=== PATIENT | female | born 1995 | race Two or more races ===

== ENCOUNTER 2016-12-10 18:02 | Inpatient (IN) | payer OTHER, BC ==
[~2016-12-10] VITALS: Ht 154.9 cm; Wt 68.0 kg
[~2016-12-10 18:02] MED LIST: IBUP-1222 PO; OXYC-302 PO
[2016-12-10 18:18] VITALS: BP 127/89
[2016-12-11] MEDS ORDERED: OXYTOCIN 30U/ 0.9% NaCL 500ML 500 ML IV ONE (00:44)
[2016-12-11] MEDS ORDERED: TERBUTALINE 1 MG/ML, 1ML IVPush PRN (01:00)
[2016-12-11] MEDS ORDERED: SODIUM CITRATE/CITRIC ACID 30 ML UDC PO PRN (01:00)
[2016-12-11] MEDS ORDERED: METOCLOPRAMIDE 5 MG/ML, 2ML IVPush PRN (01:00)
[2016-12-11] MEDS: LACTATED RINGERS 1,000 ML IV SCH ×5 (01:00→17:57)
[2016-12-11] MEDS ORDERED: FENTANYL PF 100 MCG/2ML IVPush PRN (01:00)
[2016-12-11] MEDS ORDERED: FENTANYL PF 100 MCG/2ML IV PRN (01:00)
[2016-12-11] MEDS ORDERED: NEWBORN KIT ONE (01:24)
[2016-12-11] MEDS ORDERED: OXYTOCIN 30U/ 0.9% NaCL 500ML 500 ML ONE ×2 (01:24→14:51)
[2016-12-11 07:59] VITALS: BP 123/73
[2016-12-11] MEDS: D5%-LACTATED RINGERS 1,000 ML IV SCH ×3 (08:44→16:44)
[2016-12-11] MEDS ORDERED: FENTANYL/BUPIV./NS/PF 250 ML EPIDCONT ONE (09:54)
[2016-12-11] MEDS ORDERED: BUPIVACAINE/PF 0.25% ONE (09:55)
[2016-12-11] MEDS ORDERED: FENTANYL/BUPIV./NS/PF 250 ML EPIDCONT SCH (09:57)
[2016-12-11] MEDS ORDERED: EPHEDRINE 50 MG/ML, 1ML IVPush PRN (10:00)
[2016-12-11] MEDS ORDERED: NALOXONE 0.4 MG/ML, 1ML IVPush PRN (10:00)
[2016-12-11] MEDS ORDERED: LACTATED RINGERS 1,000 ML IVBOLUS PRN (10:00)
[2016-12-11] MEDS ORDERED: MISOPROSTOL 200 MCG TABLET PO PRN (14:30)
[2016-12-11] MEDS ORDERED: ACETAMINOPHEN 325 MG TABLET PO PRN (14:30)
[2016-12-11] MEDS ORDERED: METOCLOPRAMIDE 5 MG/ML, 2ML IV PRN (14:30)
[2016-12-11] MEDS ORDERED: MISOPROSTOL 200 MCG TABLET PR PRN (14:30)
[2016-12-11] MEDS: OXYTOCIN 30U/ 0.9% NaCL 500ML 500 ML IV SCH (14:54)
[2016-12-11] MEDS ORDERED: IBUPROFEN 600 MG TABLET ONE (15:55)
[2016-12-11] MEDS: IBUPROFEN 600 MG TABLET PO PRN ×2 (15:56→22:14)
[2016-12-11 18:35] VITALS: BP 109/68
[2016-12-11 19:30] VITALS: BP 110/66
[2016-12-11] MEDS: DOCUSATE 100 MG CAPSULE PO PRN (22:13)
[2016-12-12 00:25] VITALS: BP 117/74
[2016-12-12] MEDS: OXYTOCIN 30U/ 0.9% NaCL 500ML 500 ML IV SCH ×3 (00:27→20:27)
[2016-12-12] MEDS: LACTATED RINGERS 1,000 ML IV SCH ×6 (00:44→17:57)
[2016-12-12] MEDS: D5%-LACTATED RINGERS 1,000 ML IV SCH ×3 (00:44→16:44)
[2016-12-12 05:20] VITALS: BP 125/78
[2016-12-12] MEDS: IBUPROFEN 600 MG TABLET PO PRN ×3 (05:31→20:37)
[2016-12-12 07:55] VITALS: BP 115/69
[2016-12-12] MEDS ORDERED: PRENATAL VIT/IRON/FA 1 EACH TABLET PO SCH (09:00)
[2016-12-12] MEDS: DOCUSATE 100 MG CAPSULE PO PRN ×2 (09:12→20:37)
[2016-12-12 19:46] VITALS: BP 120/79
[2016-12-12] MEDS ORDERED: MISOPROSTOL 200 MCG TABLET PO PRN (20:30)
[2016-12-12] MEDS ORDERED: MISOPROSTOL 200 MCG TABLET PR PRN (20:30)
[2016-12-12] MEDS ORDERED: METOCLOPRAMIDE 5 MG/ML, 2ML IV PRN (20:30)
[2016-12-12] MEDS ORDERED: ACETAMINOPHEN 325 MG TABLET PO PRN (21:00)
[2016-12-13] MEDS ORDERED: DOCU-30 PO (00:56)
[2016-12-13] MEDS: IBUPROFEN 600 MG TABLET PO PRN ×2 (03:28→11:13)
[2016-12-13] MEDS: OXYTOCIN 30U/ 0.9% NaCL 500ML 500 ML IV SCH (06:27)
[2016-12-13 07:34] VITALS: BP 126/84
[2016-12-13] MEDS ORDERED: PRENATAL VIT/IRON/FA 1 EACH TABLET PO SCH (09:00)
[2016-12-13] MEDS: DOCUSATE 100 MG CAPSULE PO PRN (11:13)
== END 2016-12-13 16:35 | disposition home or self-care (01) | DRG 775 ==
LOC: LDOP 18:02 → LDIP 21:16 → OBSVTOIN 12-11 00:08 → 2NW 12-11 17:09 → UNDODISIN 12-12 16:13
PROVIDERS: ADMIT Obstetrics & Gynecology; ATTEND Obstetrics & Gynecology
PROC: 10E0XZZ Delivery of Products of Conception, External Approach (ICD-10-PCS; principal; 2016-12-11)
PROC: 10907ZC Drainage of Amniotic Fluid, Therapeutic from Products of Conception, Via Natural or Artificial Opening (ICD-10-PCS; 2016-12-11)
PROC: 00HU33Z Insertion of Infusion Device into Spinal Canal, Percutaneous Approach (ICD-10-PCS; 2016-12-11)
PROC: 3E0R3CZ (ICD-10-PCS; 2016-12-11)
DX: O63.0 Prolonged first stage (of labor) (principal); Z37.0 Single live birth; Z3A.39 39 weeks gestation of pregnancy
CPT/HCPCS: 36415; 85025; 86850; 86900; J3490; J2590; J3010; J7120; J7121

== ENCOUNTER 2017-10-19 11:58 | Inpatient (IN) | payer BC ==
[~2017-10-19] VITALS: Ht 154.9 cm; Wt 68.2 kg
[~2017-10-19 11:58] MED LIST changes: +DOCU-131 PO
[2017-10-20] MEDS: D5%-LACTATED RINGERS 1,000 ML IV SCH ×3 (05:05→21:05)
[2017-10-20] MEDS ORDERED: OXYTOCIN 30U/ 0.9% NaCL 500ML 500 ML IV ONE (05:05)
[2017-10-20] MEDS ORDERED: OXYTOCIN 30U/ 0.9% NaCL 500ML 500 ML IV PRN (05:05)
[2017-10-20] MEDS ORDERED: NEWBORN KIT ONE (05:10)
[2017-10-20] MEDS ORDERED: OXYTOCIN 30U/ 0.9% NaCL 500ML 500 ML ONE ×2 (05:10→16:05)
[2017-10-20] MEDS ORDERED: METOCLOPRAMIDE 5 MG/ML, 2ML IVPush PRN (05:30)
[2017-10-20] MEDS ORDERED: SODIUM CITRATE/CITRIC ACID 30 ML UDC PO PRN (05:30)
[2017-10-20] MEDS ORDERED: CALCIUM CARBONATE 500 MG TAB.CHEW PO PRN (05:30)
[2017-10-20] MEDS ORDERED: FENTANYL PF 100 MCG/2ML IV PRN (05:30)
[2017-10-20] MEDS ORDERED: TERBUTALINE 1 MG/ML, 1ML IVPush PRN (05:30)
[2017-10-20] MEDS ORDERED: ONDANSETRON 2MG/ML, 2ML IVPush PRN (05:30)
[2017-10-20] MEDS ORDERED: FENTANYL PF 100 MCG/2ML IVPush PRN (05:30)
[2017-10-20 05:35] VITALS: BP 120/76
[2017-10-20 05:35] LABS: BASOPHILS # (AUTO) 0.08 x10^3/uL (0-0.1); BASOPHILS % (AUTO) 1 % (0-1); EOSINOPHILS # (AUTO) 0.03 x10^3/uL (0-0.4); EOSINOPHILS % (AUTO) 0 % (1-7); LYMPHOCYTES # (AUTO) 1.92 x10^3/uL (1-3.4); LYMPHOCYTES % (AUTO) 27 % (22-44); MD NO; MEAN CORPUSCULAR HGB CONC 34.1 g/dL (32.4-35.8); MEAN CORPUSCULAR VOLUME 85.1 fL (80-100); MEAN PLATELET VOLUME 9.9 fL (7.4-10.4); MONOCYTES # (AUTO) 0.48 x10^3/uL (0.2-0.8); MONOCYTES % (AUTO) 7 % (2-9); NEUTROPHILS # (AUTO) 4.49 x10^3/uL (1.8-6.8); NEUTROPHILS % (AUTO) 64 % (42-75); PLATELET COUNT 261 x10^3/uL (130-400); RED BLOOD COUNT 4.17 x10^6/uL (3.82-5.3); RED CELL DISTRIBUTION WIDTH 13.4 % (9.6-15.2)
[2017-10-20] MEDS: LACTATED RINGERS 1,000 ML IV SCH ×5 (05:45→21:05)
[2017-10-20] MEDS ORDERED: FENTANYL/BUPIV./NS/PF 250 ML EPIDCONT SCH (11:20)
[2017-10-20] MEDS ORDERED: FENTANYL/BUPIV./NS/PF 250 ML EPIDCONT ONE (11:25)
[2017-10-20] MEDS ORDERED: BUPIVACAINE/PF 0.25% ONE (11:25)
[2017-10-20] MEDS ORDERED: EPHEDRINE 50 MG/ML, 1ML IVPush PRN (11:30)
[2017-10-20] MEDS ORDERED: NALOXONE 0.4 MG/ML, 1ML IVPush PRN (11:30)
[2017-10-20] MEDS ORDERED: LACTATED RINGERS 1,000 ML IVBOLUS PRN (11:30)
[2017-10-20] MEDS ORDERED: MISOPROSTOL 200 MCG TABLET ONE (14:52)
[2017-10-20] MEDS ORDERED: MISOPROSTOL 200 MCG TABLET PR PRN ×2 (15:00→15:30)
[2017-10-20] MEDS ORDERED: DOCUSATE 100 MG CAPSULE PO PRN (15:30)
[2017-10-20] MEDS ORDERED: OXYcodone/APAP 5/325MG TABLET PO PRN (15:30)
[2017-10-20] MEDS ORDERED: ONDANSETRON 2MG/ML, 2ML IV PRN (15:30)
[2017-10-20] MEDS ORDERED: METHYLERGONOVINE 0.2 MG/ML IM PRN (15:30)
[2017-10-20] MEDS ORDERED: IBUPROFEN 600 MG TABLET PO PRN (15:30)
[2017-10-20] MEDS: OXYTOCIN 30U/ 0.9% NaCL 500ML 500 ML IV SCH (16:08)
[2017-10-20] MEDS ORDERED: IBUPROFEN 600 MG TABLET ONE (17:24)
[2017-10-20 17:45] VITALS: BP 110/67
[2017-10-20 19:30] VITALS: BP 97/58
[2017-10-20 23:26] LABS: BASOPHILS # (AUTO) 0.03 x10^3/uL (0-0.1); BASOPHILS % (AUTO) 0 % (0-1); EOSINOPHILS # (AUTO) 0.01 x10^3/uL (0-0.4); EOSINOPHILS % (AUTO) 0 % (1-7); LYMPHOCYTES # (AUTO) 1.88 x10^3/uL (1-3.4); LYMPHOCYTES % (AUTO) 22 % (22-44); MD NO; MEAN CORPUSCULAR HEMOGLOBIN 28.6 pg (27.0-34.8); MEAN CORPUSCULAR HGB CONC 33.7 g/dL (32.4-35.8); MEAN PLATELET VOLUME 9.5 fL (7.4-10.4); MONOCYTES # (AUTO) 0.61 x10^3/uL (0.2-0.8); MONOCYTES % (AUTO) 7 % (2-9); NEUTROPHILS # (AUTO) 6.13 x10^3/uL (1.8-6.8); NEUTROPHILS % (AUTO) 71 % (42-75); PLATELET COUNT 199 x10^3/uL (130-400); RED BLOOD COUNT 3.43 x10^6/uL (3.82-5.3); RED CELL DISTRIBUTION WIDTH 13.3 % (9.6-15.2)
[2017-10-20 23:45] VITALS: BP 110/68
[2017-10-21] MEDS: OXYTOCIN 30U/ 0.9% NaCL 500ML 500 ML IV SCH ×2 (01:02→11:02)
[2017-10-21 04:25] VITALS: BP 106/66
[2017-10-21 08:50] VITALS: BP 113/69
[2017-10-21] MEDS ORDERED: PRENATAL VIT/IRON/FA 1 EACH TABLET PO SCH (09:00)
[2017-10-21] MEDS ORDERED: MEASLES,MUMPS&RUBELLA VACC/PF 0.5 ML SQ-VACC ONE ×2 (11:43→12:30)
[2017-10-21 12:08] VITALS: BP 112/71
[2017-10-21] MEDS ORDERED: MULT-257 PO (13:37)
== END 2017-10-21 16:05 | disposition home or self-care (01) | DRG 775 ==
LOC: LDIP 10-20 05:04 → 2NW 10-20 17:30
PROVIDERS: ADMIT Obstetrics & Gynecology; ATTEND Obstetrics & Gynecology
PROC: 10E0XZZ Delivery of Products of Conception, External Approach (ICD-10-PCS; principal; 2017-10-20)
PROC: 3E033VJ Introduction of Other Hormone into Peripheral Vein, Percutaneous Approach (ICD-10-PCS; 2017-10-20)
PROC: 3E0R3BZ Introduction of Anesthetic Agent into Spinal Canal, Percutaneous Approach (ICD-10-PCS; 2017-10-20)
PROC: 00HU33Z Insertion of Infusion Device into Spinal Canal, Percutaneous Approach (ICD-10-PCS; 2017-10-20)
DX: O43.123 Velamentous insertion of umbilical cord, third trimester (principal); O43.193 Other malformation of placenta, third trimester; Z37.0 Single live birth; Z3A.39 39 weeks gestation of pregnancy
CPT/HCPCS: 36415; 85025; 86850; 86900; J2590; J3010; J7120

== ENCOUNTER 2020-11-30 06:46 | Inpatient (IN) | payer OTHER, BC ==
[~2020-11-30] VITALS: Ht 157.5 cm; Wt 65.4 kg
[~2020-11-30 06:46] MED LIST changes: +MULT-257 PO; -OXYC-302 PO; +OXYC1TAB14 PO
[2020-11-30] MEDS ORDERED: SODIUM CITRATE/CITRIC ACID 30 ML UDC PO PRN (07:00)
[2020-11-30] MEDS ORDERED: METOCLOPRAMIDE 5 MG/ML, 2ML IVPush PRN (07:00)
[2020-11-30] MEDS ORDERED: LACTATED RINGERS 1,000 ML IV SCH (07:00)
[2020-11-30] MEDS ORDERED: CALCIUM CARBONATE 500 MG TAB.CHEW PO PRN (07:00)
[2020-11-30] MEDS ORDERED: TERBUTALINE 1 MG/ML, 1ML SQ PRN (07:00)
[2020-11-30] MEDS ORDERED: OXYTOCIN 30U/ 0.9% NaCL 500ML 500 ML IV PRN (07:00)
[2020-11-30] MEDS ORDERED: FENTANYL PF 100 MCG/2ML IVPush PRN (07:00)
[2020-11-30] MEDS ORDERED: FENTANYL PF 100 MCG/2ML IV PRN (07:00)
[2020-11-30] MEDS ORDERED: ONDANSETRON 2MG/ML, 2ML IVPush PRN (07:00)
[2020-11-30] MEDS ORDERED: D5%-LACTATED RINGERS 1,000 ML IV SCH (07:00)
[2020-11-30] MEDS ORDERED: TERBUTALINE 1 MG/ML, 1ML IVPush PRN (07:00)
[2020-11-30 07:31] LABS: BASOPHILS % (AUTO) 0 % (0-1); EOSINOPHILS % (AUTO) 1 % (1-7); LYMPHOCYTES % (AUTO) 29 % (22-44); MEAN CORPUSCULAR HEMOGLOBIN 28.1 pg (27.0-34.8); MEAN CORPUSCULAR HGB CONC 33.7 g/dL (32.4-35.8); MEAN PLATELET VOLUME 9.7 fL (7.4-10.4); MONOCYTES % (AUTO) 6 % (2-9); NEUTROPHILS % (AUTO) 64 % (42-75); PLATELET COUNT 217 x10^3/uL (130-400); RED BLOOD COUNT 4.17 x10^6/uL (3.82-5.3); RED CELL DISTRIBUTION WIDTH 14.7 % (9.6-15.2)
[2020-11-30 07:33] LABS: MD NO
[2020-11-30] MEDS ORDERED: NEWBORN KIT ONE (07:35)
[2020-11-30 07:43] VITALS: BP 128/79
[2020-11-30] MEDS ORDERED: IBUPROFEN 600 MG TABLET PO PRN (11:00)
[2020-11-30] MEDS ORDERED: OXYcodone/APAP 5/325MG TABLET PO PRN (11:00)
[2020-11-30] MEDS: PRENATAL VIT/IRON/FA 1 EACH TABLET PO SCH (11:00)
[2020-11-30] MEDS ORDERED: SIMETHICONE 80 MG CHEW TAB PO PRN (11:00)
[2020-11-30] MEDS ORDERED: ONDANSETRON 2MG/ML, 2ML IV PRN (11:00)
[2020-11-30] MEDS ORDERED: MISOPROSTOL 200 MCG TABLET PR PRN (11:00)
[2020-11-30] MEDS ORDERED: ACETAMINOPHEN 325 MG TABLET PO PRN (11:00)
[2020-11-30] MEDS: OXYTOCIN 30U/ 0.9% NaCL 500ML 500 ML IV SCH ×2 (11:47→21:00)
[2020-11-30 12:45] VITALS: BP 113/71
[2020-11-30 16:56] VITALS: BP 130/84
[2020-11-30 18:28] LABS: BASOPHILS % (AUTO) 1 % (0-1); EOSINOPHILS % (AUTO) 0 % (1-7); LYMPHOCYTES % (AUTO) 24 % (22-44); MEAN CORPUSCULAR HEMOGLOBIN 28.4 pg (27.0-34.8); MEAN PLATELET VOLUME 9.6 fL (7.4-10.4); MONOCYTES % (AUTO) 7 % (2-9); NEUTROPHILS % (AUTO) 69 % (42-75); PLATELET COUNT 200 x10^3/uL (130-400); RED BLOOD COUNT 3.94 x10^6/uL (3.82-5.3); RED CELL DISTRIBUTION WIDTH 14.4 % (9.6-15.2)
[2020-11-30 18:32] LABS: MD NO
[2020-11-30 19:30] VITALS: BP 122/79
[2020-12-01 00:10] VITALS: BP 117/71
[2020-12-01 03:30] VITALS: BP 113/72
[2020-12-01 07:20] VITALS: BP 116/72
[2020-12-01] MEDS: DOCUSATE 100 MG CAPSULE PO PRN (09:56)
[2020-12-01] MEDS: PRENATAL VIT/IRON/FA 1 EACH TABLET PO SCH (09:56)
[2020-12-01 13:15] VITALS: BP 126/78
[2020-12-01 19:15] VITALS: BP 122/79
[2020-12-02 07:20] VITALS: BP 117/76
[2020-12-02] MEDS: DOCUSATE 100 MG CAPSULE PO PRN (09:26)
[2020-12-02] MEDS: PRENATAL VIT/IRON/FA 1 EACH TABLET PO SCH (09:26)
== END 2020-12-02 11:30 | disposition home or self-care (01) | DRG 807 ==
LOC: LDIP 06:46 → 2NW 12:30
PROVIDERS: ADMIT Obstetrics & Gynecology; ATTEND Obstetrics & Gynecology
PROC: 10E0XZZ Delivery of Products of Conception, External Approach (ICD-10-PCS; principal; 2020-12-01)
PROC: 3E033VJ Introduction of Other Hormone into Peripheral Vein, Percutaneous Approach (ICD-10-PCS; 2020-12-01)
DX: O80 Encounter for full-term uncomplicated delivery (principal); Z37.0 Single live birth; Z3A.39 39 weeks gestation of pregnancy; Z20.822 Contact with and (suspected) exposure to COVID-19
CPT/HCPCS: 36415; 85025; 86592; 86850; 86900; 87635; G0378; J2590; J7120